=== PATIENT | female | born 1945 | race Caucasian/White ===

== ENCOUNTER 2017-05-21 04:20 | Inpatient (IN) | payer OTHER ==
[~2017-05-21] VITALS: Ht 154.9 cm; Wt 114.2 kg
[~2017-05-21 04:20] MED LIST: AMLODIPINE BESYL5 MG PO; ASPIRIN81 M2 PO; ATORVASTATIN CA40 MG PO; DULCOLAX10 MG PR; FLEET ENEMA-AD118 ML PR; FUROSEMIDE40 MG PO; K-TAB10 MEQ PO; LASIX40 MG PO; LEVOTHYROXINE125 MCG PO; LISINOPRIL5 MG PO; LORTAB 5-325 M1 EACH PO; LOSARTAN POTASS50 MG PO; METOPROLOL TART25 MG PO; OS-CAL 500+D T1 EAC1 PO; PHILLIPS'400 MG/5 M PO; PRAVACHOL40 MG PO; SKELAXIN800 MG PO; TYLENOL WITH C1 EACH PO; ULTRAM50 MG PO
[2017-05-21 04:58] LABS: HEMATOCRIT 42.1 % (36.0-46.0); HEMOGLOBIN 13.3 G/DL (11.9-15.5); MCH 29.7 PG (29.0-34.0); MCHC 31.6 G/DL (30.0-36.0); PLATELET COUNT 108 K/uL (156-360); RBC DIS.WIDTH-CV 13.9 % (11.8-14.6); RBC DIS.WIDTH-SD 47.3 % (39-53); RED BLOOD COUNT 4.48 M/uL (3.80-5.20)
[2017-05-21 04:59] LABS: CARBON DIOXIDE (BICARBONATE) 26.5 MEQ/L (20-31)
[2017-05-21 05:13] LABS: CHLORIDE 108 mEq/L (99-109); POTASSIUM 4.1 mEq/L (3.7-5.4); SODIUM 141 mEq/L (136-147)
[2017-05-21 05:15] LABS: GLUCOSE 131 mg/dL (70-99)
[2017-05-21 05:19] LABS: CREATININE 0.8 mg/dL (0.6-1.3); GFR ESTIMATE (CALCULATED) > 59 mL/min/
[2017-05-21 05:20] LABS: UREA NITROGEN (BUN) 15 mg/dL (9-23)
[2017-05-21 05:25] LABS: TROP-I INTERPRETATION NEGATIVE; TROPONIN-I 0.22 ng/mL (0.0-0.30)
[2017-05-21 05:48] LABS: BASE EXCESS -1.8 mEq/L (-3 to +3); BICARBONATE 24.7 mEq/L (22-26); CARBOXY HGB 2.1 % (0-5); COMMENTS - BLOOD GASES C+A+; DEVICE HHFNC; FI02 40 %; METHEMOGLOBIN 1.1 % (0-1.5); O2 FLOW 40 L/MIN; PCO2 48 mm Hg (35-45); PO2 81 mm Hg (80-100); SITE LR; pH 7.32 (7.35-7.45)
[2017-05-21 07:12] LABS: APPEARANCE SL.HAZY ((CLEAR)); BILIRUBIN NEGATIVE; BLOOD MODERATE; COLOR YELLOW ((YELLOW)); GLUCOSE (STRIP) NEGATIVE; KETONES NEGATIVE; LEUKOCYTES NEGATIVE; NITRITE NEGATIVE; PROTEIN (STRIP) NEGATIVE; SPECIFIC GRAVITY 1.028 (1.000-1.030); UROBILINOGEN 0.2 MG/DL (0.2-1.0)
[2017-05-21 07:37] LABS: BACTERIA 1+ /HPF; CALCIUM OXALATE CRYSTALS 1+ /HPF; EPITHELIAL CELLS RARE /HPF; MUCUS NONE SEEN /LPF; UCUL ADDED? NO; WHITE BLOOD CELLS 0-5 /HPF (0-5)
[2017-05-21 08:22] VITALS: BP 144/67
[2017-05-21 10:56] LABS: TROP-I INTERPRETATION NEGATIVE; TROPONIN-I 0.23 ng/mL (0.0-0.30)
[2017-05-21] MEDS ORDERED: TYLENOL EXTRA500 MG PO (12:00)
[2017-05-21] MEDS ORDERED: LASIX20 MG PO (12:00)
[2017-05-21 12:27] VITALS: BP 134/67
[2017-05-21 15:23] LABS: BASOPHIL (%) 0.3 % (0-1); EOSINOPHIL (%) 0 % (0-5); HEMOGLOBIN 12.8 G/DL (11.9-15.5); IMMATURE GRANULOCYTE (%) 0.6 % (0.0-0.7); LYMPHOCYTE COUNT 0.4 K/uL (1.0-2.8); MCH 28.9 PG (29.0-34.0); MCHC 31.2 G/DL (30.0-36.0); MCV 92.6 FL (83-99); MONOCYTE (%) 1.7 % (3-12); MONOCYTE COUNT 0.1 K/uL (0-0.8); NEUTROPHIL (%) 91.4 % (45-76); NEUTROPHIL COUNT 6.5 K/uL (1.8-6.4); RBC DIS.WIDTH-CV 13.4 % (11.8-14.6); RED BLOOD COUNT 4.43 M/uL (3.80-5.20); WHITE BLOOD COUNT 7.2 K/uL (4.1-10.2)
[2017-05-21 15:24] LABS: PLATELET COUNT 150 K/uL (156-360)
[2017-05-21 15:31] LABS: CARBON DIOXIDE (BICARBONATE) 29.8 MEQ/L (20-31)
[2017-05-21 15:39] LABS: CHLORIDE 99 MEQ/L (99-109); POTASSIUM 4.4 MEQ/L (3.7-5.4); SODIUM 136 MEQ/L (136-147)
[2017-05-21 15:45] LABS: GFR ESTIMATE (CALCULATED) 58 mL/min/; UREA NITROGEN (BUN) 17 mg/dL (9-23)
[2017-05-21 15:50] LABS: GLUCOSE 201 mg/dL (70-99)
[2017-05-21 16:04] VITALS: BP 135/61
[2017-05-21 17:15] LABS: TROP-I INTERPRETATION NEGATIVE
[2017-05-21 19:45] VITALS: BP 122/65
[2017-05-22 00:22] VITALS: BP 117/63
[2017-05-22 02:43] LABS: HEMATOCRIT 38.6 % (36.0-46.0); HEMOGLOBIN 12.4 G/DL (11.9-15.5); MCH 29.7 PG (29.0-34.0); MCHC 32.1 G/DL (30.0-36.0); MCV 92.6 FL (83-99); PLATELET COUNT 159 K/uL (156-360); RBC DIS.WIDTH-CV 13.6 % (11.8-14.6); RED BLOOD COUNT 4.17 M/uL (3.80-5.20); WHITE BLOOD COUNT 11.3 K/uL (4.1-10.2)
[2017-05-22 02:54] LABS: CHLORIDE 100 mEq/L (99-109); POTASSIUM 4.2 mEq/L (3.7-5.4); SODIUM 139 mEq/L (136-147)
[2017-05-22 03:00] LABS: CREATININE 1.1 mg/dL (0.6-1.3); GFR ESTIMATE (CALCULATED) 52 mL/min/
[2017-05-22 03:01] LABS: UREA NITROGEN (BUN) 23 mg/dL (9-23)
[2017-05-22 03:04] LABS: GLUCOSE 115 mg/dL (70-99)
[2017-05-22 05:02] VITALS: BP 125/64
[2017-05-22 07:55] VITALS: BP 134/72
[2017-05-22 11:25] VITALS: BP 123/63
[2017-05-22 15:49] VITALS: BP 149/85
[2017-05-22 19:50] VITALS: BP 120/67
[2017-05-23 04:39] VITALS: BP 138/66
[2017-05-23 04:42] LABS: HEMATOCRIT 44.9 % (36.0-46.0); HEMOGLOBIN 14.2 G/DL (11.9-15.5); MCH 29.7 PG (29.0-34.0); MCHC 31.6 G/DL (30.0-36.0); MCV 93.9 FL (83-99); PLATELET COUNT 150 K/uL (156-360); RBC DIS.WIDTH-CV 13.8 % (11.8-14.6); RBC DIS.WIDTH-SD 47.3 % (39-53); RED BLOOD COUNT 4.78 M/uL (3.80-5.20); WHITE BLOOD COUNT 9.4 K/uL (4.1-10.2)
[2017-05-23 04:56] LABS: CHLORIDE 96 mEq/L (99-109); POTASSIUM 4.4 mEq/L (3.7-5.4); SODIUM 140 mEq/L (136-147)
[2017-05-23 04:57] LABS: MAGNESIUM 2.2 mg/dL (1.3-2.7)
[2017-05-23 04:58] LABS: GLUCOSE 106 mg/dL (70-99)
[2017-05-23 05:02] LABS: GFR ESTIMATE (CALCULATED) 58 mL/min/; UREA NITROGEN (BUN) 33 mg/dL (9-23)
[2017-05-23 07:45] VITALS: BP 153/98
[2017-05-23 11:34] VITALS: BP 121/65
[2017-05-23 16:10] VITALS: BP 122/76
[2017-05-23 19:50] VITALS: BP 129/84
[2017-05-23 23:18] VITALS: BP 120/62
[2017-05-24 04:05] VITALS: BP 133/61
[2017-05-24 06:01] LABS: HEMATOCRIT 43.2 % (36.0-46.0); HEMOGLOBIN 13.6 G/DL (11.9-15.5); MCH 29.6 PG (29.0-34.0); MCHC 31.5 G/DL (30.0-36.0); MCV 93.9 FL (83-99); PLATELET COUNT 142 K/uL (156-360); RBC DIS.WIDTH-CV 13.9 % (11.8-14.6); RBC DIS.WIDTH-SD 47.3 % (39-53); WHITE BLOOD COUNT 10.4 K/uL (4.1-10.2)
[2017-05-24 06:46] LABS: CHLORIDE 94 MEQ/L (99-109); CREATININE 0.9 MG/DL (0.6-1.3); GFR ESTIMATE (CALCULATED) > 59 mL/min/; GLUCOSE 114 mg/dL (70-99); SODIUM 136 MEQ/L (136-147); UREA NITROGEN (BUN) 38 mg/dL (9-23)
[2017-05-24 07:34] VITALS: BP 121/62
[2017-05-24] MEDS ORDERED: LISINOPRIL5 MG PO (09:48)
[2017-05-24] MEDS ORDERED: LOPRESSOR25 MG PO (09:48)
[2017-05-24] MEDS ORDERED: FUROSEMIDE40 MG PO (09:49)
[2017-05-24] MEDS ORDERED: CEFTIN250 MG PO (09:50)
[2017-05-24] MEDS ORDERED: LIPITOR10 MG PO (09:50)
== END 2017-05-24 11:09 | disposition home or self-care (01) | DRG 189 ==
LOC: EME 04:20 → EDOF 06:06 → 4EAST 06:06 → ENRESERV 06:10 → 4EAST 07:24 → ENPENDDIS 05-24 → 4EAST 05-24 11:09
PROVIDERS: Emergency Medicine; Family Medicine; Hospitalist; Internal Medicine
DX: J96.01 Acute respiratory failure with hypoxia (principal); J96.02 Acute respiratory failure with hypercapnia; I11.0 Hypertensive heart disease with heart failure; I16.0 Hypertensive urgency; I50.23 Acute on chronic systolic (congestive) heart failure; N39.0 Urinary tract infection, site not specified; B96.20 Unspecified Escherichia coli [E. coli] as the cause of diseases classified elsewhere; E87.2 Acidosis; I42.9 Cardiomyopathy, unspecified; D69.6 Thrombocytopenia, unspecified; E66.01 Morbid (severe) obesity due to excess calories; Z68.42 Body mass index [BMI] 45.0-49.9, adult; S20.219A Contusion of unspecified front wall of thorax, initial encounter; W18.30XA Fall on same level, unspecified, initial encounter; E03.9 Hypothyroidism, unspecified; E11.9 Type 2 diabetes mellitus without complications; I25.10 Atherosclerotic heart disease of native coronary artery without angina pectoris; I25.2 Old myocardial infarction; E78.5 Hyperlipidemia, unspecified; Z79.82 Long term (current) use of aspirin; Z91.14 Patient's other noncompliance with medication regimen; Z96.653 Presence of artificial knee joint, bilateral; Z95.3 Presence of xenogenic heart valve
CPT/HCPCS: 36600; 71045; 71275; 80047; 80048; 80048 91; 81003; 82803; 83605; 83735; 83880; 84484; 85025; 85027; 87040; 87077; 87086; 87186; 87502; 87801; 90686; 93005; 93306; 94640; 94799; 99281; 99285; J0696; J1644; J1940; J2930; J7030

== ENCOUNTER 2017-09-28 21:04 | Inpatient (IN) | payer OTHER ==
[~2017-09-28] VITALS: Ht 154.9 cm; Wt 115.6 kg
[~2017-09-28 21:04] MED LIST changes: -ASPIRIN81 M2 PO; +CEFTIN250 MG PO; +LASIX20 MG PO; -LEVOTHYROXINE125 MCG PO; +LIPITOR10 MG PO; +LITE COAT ASPI325 M1 PO; +LOPRESSOR25 MG PO; +SYNTHROID125 MCG PO; +TYLENOL EXTRA500 MG PO
[2017-09-28 21:24] LABS: BASOPHIL (%) 0.5 % (0-1); BASOPHIL COUNT 0.1 K/uL (0-0.1); EOSINOPHIL (%) 3.9 % (0-5); EOSINOPHIL COUNT 0.4 K/uL (0-0.3); HEMATOCRIT 41.6 % (36.0-46.0); HEMOGLOBIN 13.5 G/DL (11.9-15.5); IMMATURE GRANULOCYTE (%) 0.4 % (0.0-0.7); LYMPHOCYTE COUNT 1.5 K/uL (1.0-2.8); MCH 30.1 PG (29.0-34.0); MCHC 32.5 G/DL (30.0-36.0); MCV 92.7 FL (83-99); MONOCYTE (%) 4.3 % (3-12); MONOCYTE COUNT 0.4 K/uL (0-0.8); NEUTROPHIL (%) 75.9 % (45-76); NEUTROPHIL COUNT 7.4 K/uL (1.8-6.4); PLATELET COUNT 194 K/uL (156-360); RBC DIS.WIDTH-CV 14.1 % (11.8-14.6); RBC DIS.WIDTH-SD 47.8 % (39-53); RED BLOOD COUNT 4.49 M/uL (3.80-5.20); WHITE BLOOD COUNT 9.7 K/uL (4.1-10.2)
[2017-09-28 21:33] LABS: ALBUMIN 3.9 g/dL (3.2-4.8); CHLORIDE 107 mEq/L (99-109); PTT 30.8 SEC (25-37); SODIUM 142 mEq/L (136-147)
[2017-09-28 21:36] LABS: GLUCOSE 188 mg/dL (70-99)
[2017-09-28 21:39] LABS: ALKALINE PHOSPHATASE 63 IU/L (3-129); CREATININE 0.9 mg/dL (0.6-1.3); GFR ESTIMATE (CALCULATED) > 59 mL/min/
[2017-09-28 21:40] LABS: UREA NITROGEN (BUN) 17 mg/dL (9-23)
[2017-09-28 21:41] LABS: AST (GOT) 15 IU/L (2-34)
[2017-09-28 21:42] LABS: ALT (GPT) 14 IU/L (3-49); INTER. NORMALIZED RATIO 1.1
[2017-09-28 21:44] LABS: TROP-I INTERPRETATION NEGATIVE; TROPONIN-I 0.12 ng/mL (0.0-0.30)
[2017-09-28] MEDS ORDERED: LASIX40 MG PO (22:29)
[2017-09-28] MEDS ORDERED: PRINIVIL5 MG PO (22:30)
[2017-09-29 02:51] LABS: TROP-I INTERPRETATION NEGATIVE; TROPONIN-I 0.13 ng/mL (0.0-0.30)
[2017-09-29 03:21] VITALS: BP 145/67
[2017-09-29 07:43] VITALS: BP 111/57
[2017-09-29 11:58] VITALS: BP 106/67
[2017-09-29 15:24] VITALS: BP 125/65
[2017-09-29 19:55] VITALS: BP 117/58
[2017-09-30 00:32] VITALS: BP 113/59
[2017-09-30 04:00] VITALS: BP 110/59
[2017-09-30 06:00] LABS: CHLORIDE 102 MEQ/L (99-109); GFR ESTIMATE (CALCULATED) 58 mL/min/; GLUCOSE 122 mg/dL (70-99); POTASSIUM 4.3 MEQ/L (3.7-5.4); SODIUM 140 MEQ/L (136-147)
[2017-09-30 06:01] LABS: UREA NITROGEN (BUN) 28 mg/dL (9-23)
[2017-09-30 07:23] VITALS: BP 128/69
[2017-09-30 15:22] VITALS: BP 122/61
[2017-10-01] VITALS: BP 105/53
[2017-10-01 07:51] VITALS: BP 133/77
[2017-10-01] MEDS ORDERED: FUROSEMIDE40 MG PO (10:27)
== END 2017-10-01 14:25 | disposition home health service (06) | DRG 291 ==
LOC: EME 21:04 → 5SOUTH 09-29 01:12 → EDOF 09-29 01:12 → ENRESERV 09-29 01:15 → 5SOUTH 09-29 02:36
PROVIDERS: Emergency Medicine; Family Medicine; Hospitalist
DX: I11.0 Hypertensive heart disease with heart failure (principal); J96.01 Acute respiratory failure with hypoxia; I50.23 Acute on chronic systolic (congestive) heart failure; E78.5 Hyperlipidemia, unspecified; E66.01 Morbid (severe) obesity due to excess calories; I27.20 Pulmonary hypertension, unspecified; E03.9 Hypothyroidism, unspecified; Z68.42 Body mass index [BMI] 45.0-49.9, adult; Z95.2 Presence of prosthetic heart valve; I42.9 Cardiomyopathy, unspecified; I35.0 Nonrheumatic aortic (valve) stenosis; E11.9 Type 2 diabetes mellitus without complications; G31.84 Mild cognitive impairment of uncertain or unknown etiology; Z79.899 Other long term (current) drug therapy; Z91.19 Patient's noncompliance with other medical treatment and regimen; I25.2 Old myocardial infarction; Z79.82 Long term (current) use of aspirin
CPT/HCPCS: 71045; 80048; 80053; 83880; 84484; 85025; 85610; 85730; 93005; 94640; 94799; 99281; 99285; J1644; J1940; J2930

== ENCOUNTER 2017-12-18 08:56 | Inpatient (IN) | payer OTHER ==
[~2017-12-18] VITALS: Ht 157.5 cm; Wt 117.3 kg
[~2017-12-18 08:56] MED LIST changes: +PRINIVIL5 MG PO
[2017-12-18 09:45] LABS: BASOPHIL (%) 0.9 % (0-1); BASOPHIL COUNT 0.1 K/uL (0-0.1); EOSINOPHIL (%) 6.5 % (0-5); EOSINOPHIL COUNT 0.7 K/uL (0-0.3); HEMATOCRIT 41.3 % (36.0-46.0); HEMOGLOBIN 13.1 G/DL (11.9-15.5); IMMATURE GRANULOCYTE (%) 0.4 % (0.0-0.7); LYMPHOCYTE (%) 11.7 % (15-42); LYMPHOCYTE COUNT 1.2 K/uL (1.0-2.8); MCH 29.8 PG (29.0-34.0); MCHC 31.7 G/DL (30.0-36.0); MCV 93.9 FL (83-99); MONOCYTE (%) 6.1 % (3-12); MONOCYTE COUNT 0.6 K/uL (0-0.8); NEUTROPHIL (%) 74.4 % (45-76); NEUTROPHIL COUNT 7.8 K/uL (1.8-6.4); PLATELET COUNT 180 K/uL (156-360); RBC DIS.WIDTH-CV 14.6 % (11.8-14.6); RBC DIS.WIDTH-SD 50.1 % (39-53); WHITE BLOOD COUNT 10.5 K/uL (4.1-10.2)
[2017-12-18 09:51] LABS: INTER. NORMALIZED RATIO 0.9
[2017-12-18 09:53] LABS: PTT 29.1 SEC (25-37)
[2017-12-18 09:58] LABS: CHLORIDE 102 mEq/L (99-109); POTASSIUM 5.2 mEq/L (3.7-5.4); SODIUM 136 mEq/L (136-147)
[2017-12-18 10:00] LABS: GLUCOSE 121 mg/dL (70-99)
[2017-12-18 10:04] LABS: CREATININE 0.8 mg/dL (0.6-1.3); GFR ESTIMATE (CALCULATED) > 59 mL/min/
[2017-12-18 10:05] LABS: UREA NITROGEN (BUN) 17 mg/dL (9-23)
[2017-12-18 10:08] LABS: TROP-I INTERPRETATION NEGATIVE
[2017-12-18] MEDS ORDERED: SERTRALINE HCL25 MG PO (12:18)
[2017-12-18 17:38] LABS: TROP-I INTERPRETATION NEGATIVE; TROPONIN-I 0.09 ng/mL (0.0-0.30)
[2017-12-18 21:00] VITALS: BP 127/60
[2017-12-18 23:38] LABS: TROP-I INTERPRETATION NEGATIVE; TROPONIN-I 0.08 ng/mL (0.0-0.30)
[2017-12-19 00:30] VITALS: BP 115/53
[2017-12-19 05:22] VITALS: BP 119/58
[2017-12-19 05:41] LABS: HEMOGLOBIN 12.6 G/DL (11.9-15.5); MCH 29.9 PG (29.0-34.0); MCHC 32.3 G/DL (30.0-36.0); MCV 92.4 FL (83-99); PLATELET COUNT 190 K/uL (156-360); RBC DIS.WIDTH-CV 14.8 % (11.8-14.6); RED BLOOD COUNT 4.22 M/uL (3.80-5.20); WHITE BLOOD COUNT 8.2 K/uL (4.1-10.2)
[2017-12-19 07:59] VITALS: BP 123/69
[2017-12-19 12:06] VITALS: BP 124/59
[2017-12-19 12:27] LABS: CHLORIDE 98 MEQ/L (99-109); GFR ESTIMATE (CALCULATED) 58 mL/min/; GLUCOSE 120 mg/dL (70-99); POTASSIUM 5.2 MEQ/L (3.7-5.4); SODIUM 135 MEQ/L (136-147); UREA NITROGEN (BUN) 22 mg/dL (9-23)
[2017-12-19 15:39] VITALS: BP 131/69
[2017-12-19 19:50] VITALS: BP 108/58
[2017-12-20 00:17] VITALS: BP 119/58
[2017-12-20 04:52] VITALS: BP 120/57
[2017-12-20 07:15] VITALS: BP 119/59
[2017-12-20 09:41] LABS: CHLORIDE 97 MEQ/L (99-109); GFR ESTIMATE (CALCULATED) 58 mL/min/; GLUCOSE 137 mg/dL (70-99); POTASSIUM 4.8 MEQ/L (3.7-5.4); SODIUM 136 MEQ/L (136-147); UREA NITROGEN (BUN) 32 mg/dL (9-23)
[2017-12-20 11:50] VITALS: BP 154/80
== END 2017-12-20 13:36 | disposition home health service (06) | DRG 292 ==
LOC: EME 08:56 → 4SOUTH 12:38 → EDOF 12:38 → CANRESERV 12:44 → ENRESERV 12:44 → CANRESERV 19:17 → ENRESERV 19:59 → 4SOUTH 20:49
PROVIDERS: Emergency Medicine; Hospitalist; Physician Assistant
DX: I11.0 Hypertensive heart disease with heart failure (principal); I50.43 Acute on chronic combined systolic (congestive) and diastolic (congestive) heart failure; Z95.2 Presence of prosthetic heart valve; E78.5 Hyperlipidemia, unspecified; E66.01 Morbid (severe) obesity due to excess calories; Z68.42 Body mass index [BMI] 45.0-49.9, adult; I25.2 Old myocardial infarction; I35.0 Nonrheumatic aortic (valve) stenosis; R94.31 Abnormal electrocardiogram [ECG] [EKG]; Z91.11 Patient's noncompliance with dietary regimen; Z91.14 Patient's other noncompliance with medication regimen; Z79.82 Long term (current) use of aspirin; Z79.899 Other long term (current) drug therapy
CPT/HCPCS: 71045; 80048; 83880; 84484; 85025; 85027; 85610; 85730; 93005; 94640; 99281; 99285; J1644; J1940